=== PATIENT | male | born 1995 | race Caucasian/White ===

== ENCOUNTER 2017-07-05 14:10 | Emergency (ER) | payer BC ==
[2017-07-05] MEDS ORDERED: DOXYCYCLINE HYCLATE 100 MG CAPSULE PO ONE ×2 (14:33→14:34)
--- NOTE | 2017-07-05 14:33 | PDOC ---
History of Present Illness - General History Source: Patient Exam Limitations: No Limitations - History of Present Illness Initial Comments: 07/05/17 14:35 The patient is a 22 year old male, with no significant past medical history, who presents to the emergency department complaining of an abscess on the right elbow that began approx. 4 to 5 days ago s/p a fall on the turf at baseball practice. The patient reports redness around the abscess but denies recent discharge or drainage. He denies recent nausea, fever, chills or dizziness. He denies recent numbness, tingling or loss of sensation. Allergies: NKA Past surgical history: Left metacarpal bone Primary Care Physician: Dr. Sewell <Samuel Holloway - Last Filed: 07/05/17 14:35> <Tino Mirza - Last Filed: 07/05/17 14:50> - General Chief Complaint: Redness To Affected Area Stated Complaint: RT ELBOW REDNESS, ABSCESS Time Seen by Provider: 07/05/17 14:15 Past History <Samuel Holloway - Last Filed: 07/05/17 14:35> - Past Medical History Asthma: No Diabetes: No HTN: No <Tino Mirza - Last Filed: 07/05/17 14:50> - Past Medical History Allergies/Adverse Reactions: Allergies Allergy/AdvReac Type Severity Reaction Status Date / Time No Known Allergies Allergy Verified 07/05/17 14:17 Home Medications: Ambulatory Orders Doxycycline Hyclate 100 mg PO BID #14 capsule 07/05/17 Review of Systems - Review of Systems Comments:: 07/05/17 14:38 CONSTITUTIONAL: No recent fever, no recent numbness, tingling or loss of sensation in the RUE. <Samuel Holloway - Last Filed: 07/05/17 14:35> *Physical Exam - Vital Signs Last Vital Signs Temp Pulse Resp BP Pulse Ox 98.1 F 79 18 109/50 96 07/05/17 14:10 07/05/17 14:10 07/05/17 14:10 07/05/17 14:10 07/05/17 14:10 - Physical Exam Comments: 07/05/17 14:41 Healing linear laceration just proximal to the olecranon with minimal local erythema Distal to the olecranon there is a pencil eraser sized pustule filled with white pus with surrounding erythema approx. 8cm in diameter No fluctuance and no deep abscess Skin, neuro, otherwise normal <Samuel Holloway - Last Filed: 07/05/17 14:35> Procedures - Incision and Drainage I&D Site: Right: Arm Progress: 07/05/17 14:49 Skin prep with Betadine Superficial pustule filled with pus was lanced with a 20-gauge needle and all of the pus was expressed until the pustule was resolved. Bacitracin antibiotic ointment applied. Band-Aid applied. Patient advised regarding signs of improvement versus worsening and indications for immediate follow-up. <Tino Mirza - Last Filed: 07/05/17 14:50> Medical Decision Making - Medical Decision Making 07/05/17 14:46 This is a 22-year-old man who presents complaining of redness around the area of the right elbow. 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 He got a cut to his right elbow. He now comes in with increasing redness. On examination, the area of the initial laceration appears to be healing well. This is just proximal to the olecranon. In a different region, just distal to the olecranon, there is a small pustule with pus inside, with surrounding erythema. This area of erythema is not adjacent to the initial cut. Range of motion of the elbow is normal without pain. Pronation supination is normal. Neurovascular examination is normal. Other than the healing laceration and the cellulitis, there are no other skin lesions. Impression: Small pustule with cellulitis. Healing minor laceration without infection Skin prep with Betadine was performed. The superficial pustule was lanced and the pus was expressed. Culture was performed. Patient was started on doxycycline and advised to watch for resolution of the cellulitis. He will follow-up with the student [facility] in 48 hours. 07/05/17 14:50 The scribe's documentation has been prepared under my direction and personally reviewed by me in its entirety. I have confirmed that the note above accurately reflects all work, treatment, procedures, and medical decision- making performed by me. <Tino Mirza - Last Filed: 07/05/17 14:50> *DC/Admit/Observation/Transfer - Attestations Scribe Attestion: 07/05/17 14:41 Documentation prepared by Samuel Holloway, acting as medical data entry clerk for Tino Mirza MD. <Samuel Holloway - Last Filed: 07/05/17 14:35> - Discharge Dispostion Admit: No <Tino Mirza - Last Filed: 07/05/17 14:50> Diagnosis at time of Disposition: Cellulitis of right elbow, Abscess, elbow - Discharge Dispostion Disposition: HOME Condition at time of disposition: Stable - Prescriptions Prescriptions: Doxycycline Hyclate 100 mg PO BID #14 capsule - Patient Instructions Printed Discharge Instructions: DI for Cellulitis -- Adult Additional Instructions: You were evaluated today for a skin infection on your right elbow. There was a small pustule/abscess that was drained by the doctor. Culture of the pus was sent and will be tested for bacteria with results available in about 48 hours. You are being put on doxycycline twice daily, and antibiotic to clear up the infection. If there is any need for a change in antibiotics after your culture results come back, we will contact you. If you have increasing redness, fever, chills, or other worsening symptoms, return to the emergency department right away. Otherwise follow-up in 48 hours at the student health clinic at [facility]. - Post Discharge Activity Forms/Work/School Notes: Back to School
[2017-07-05 14:34] VITALS: BP 109/50; PULSE 79; TEMP 98.1; BMI 26.6
== END 2017-07-05 14:40 | disposition home or self-care (01) ==
LOC: EDBD → FER 14:10
PROC: 0H9BXZZ Drainage of Right Upper Arm Skin, External Approach (ICD-10-PCS; principal; 2017-07-05)
DX: L02.413 Cutaneous abscess of right upper limb (principal)
CPT/HCPCS: 87070; 87186; 87205; 99282-25